=== PATIENT | female | born 1995 | race Caucasian/White ===

== ENCOUNTER → 2017-03-04 | Outpatient (CLI) | payer OTHER ==
[2017-03-04 12:29] LABS: MEAN CORPUSCULAR HEMOGLOBIN 27.1 pg (27.0-33.0); MEAN CORPUSCULAR HGB CONC 32.1 g/dl (32.0-36.5); MEAN CORPUSCULAR VOLUME 84.7 fl (80.0-96.0); PLATELET COUNT, AUTOMATED 208 10^3/uL (150-450); RED CELL DISTRIBUTION WIDTH 13.3 % (11.5-14.5); WHITE BLOOD COUNT 7.9 10^3/uL (4.0-10.0)
--- NOTE | 2017-03-05 04:11 | REP ---
Clinical: Anatomical evaluation. Comparison: None . Findings: Examination demonstrates a single live intrauterine in cephalic presentation. motion is identified by technologist. Placenta is noted posteriorly and grade one without evidence for placenta previa or abruption. Amniotic fluid volume is normal. Cervix measures 4.3 cm in length and appears closed. Nuchal cord cannot be excluded. Gestational age by LMP 29 weeks 2 days with MARK 05/18/2017 . Gestational age by current measurements 29 weeks 5 days with MARK 05/15/2017 . FHR equals 139 beats per minute. BPD 7.1 cm 28 weeks 3 days HC 27.0 cm 29 weeks 3 days AC 25.1 cm 29 weeks 2 days FL 5.9 cm 30 weeks 4 days HL 5.2 cm 30 weeks 4 day HC/AC ratio 1.08 Estimated weight 1434 grams (50th percentile). Anatomical assessment demonstrates normal structures including cranium, choroid plexus, cavum, cerebellum/posterior fossa, facial features, lungs, four-chamber heart, diaphragm, stomach, cord insertion/three-vessel cord, kidneys/bladder, spine, and extremities. Limited evaluation of the cardiac ventricular outflow tracts. Impression: Single live intrauterine in cephalic presentation demonstrating appropriate interval growth. No gross abnormalities are identified. Nuchal cord cannot be excluded. Cardiac ventricular outflow tracts incompletely evaluated. Signed by Hakan Barnhart MD 03/05/2017 01:02 A
== END ==
LOC: M RAD 10:04
PROVIDERS: ATTEND Obstetrics & Gynecology
DX: Z36.89 Encounter for other specified antenatal screening (principal); Z3A.29 29 weeks gestation of pregnancy

== ENCOUNTER → 2017-04-25 | Outpatient (REF) | payer OTHER | LOC: M LAB REF 17:03 | DX: Z34.83 Encounter for supervision of other normal pregnancy, third trimester (principal) ==

== ENCOUNTER 2017-05-17 03:40 | Inpatient (IN) | payer OTHER ==
[2017-05-17] MEDS ORDERED: OXYTOCIN 30 UNITS IN 0.9% NaCl 500ML IV BAG (J2590) As Ordered (04:55)
[2017-05-17] MEDS: LACTATED RINGER'S 1000 ML IV (04:56)
[2017-05-17] MEDS ORDERED: LR 1,000 ML IV (04:56)
[2017-05-17 05:11] LABS: HEMATOCRIT 35.9 % (36.0-47.0); HEMOGLOBIN 12.1 g/dl (12.0-16.0); MEAN CORPUSCULAR HEMOGLOBIN 28.1 pg (27.0-33.0); MEAN CORPUSCULAR HGB CONC 33.7 g/dl (32.0-36.5); MEAN CORPUSCULAR VOLUME 83.3 fl (80.0-96.0); PLATELET COUNT, AUTOMATED 173 10^3/uL (150-450); RED BLOOD COUNT 4.31 10^6/uL (4.00-5.40); RED CELL DISTRIBUTION WIDTH 17.3 % (11.5-14.5); WHITE BLOOD COUNT 8.7 10^3/uL (4.0-10.0)
[2017-05-17] MEDS: OXYTOCIN DRIP 30 UNITS in APPROPRIATE DILUENT 1 EA IV (06:08)
[2017-05-17] MEDS: LR 1,000 ML IV ×3 (06:08→22:20)
[2017-05-17] MEDS ORDERED: ONDANSETRON 4MG/2ML VIAL (J2405) IV (06:15)
[2017-05-17] MEDS ORDERED: PROMETHAZINE 25 MG TAB PO (06:15)
[2017-05-17] MEDS ORDERED: MEASLES,MUMPS,RUBELLA VACCINE INJ (MMR-II) (90707) SC (06:15)
[2017-05-17] MEDS ORDERED: ACETAMINOPHEN 500 MG TAB PO (06:15)
[2017-05-17] MEDS ORDERED: RHOGAM 300 MCG (1500 IU) INJ (J2790) IM (06:15)
[2017-05-17] MEDS ORDERED: DIBUCAINE 1% OINTMENT 30GM TOP (06:15)
[2017-05-17] MEDS ORDERED: DOCUSATE SODIUM 100 MG CAP PO (06:15)
[2017-05-17 08:20] LABS: HBSAG L&D NEGATIVE (NEGATIVE)
[2017-05-17] MEDS: PRENATAL VITAMINS CHEWABLE TABLET PO (09:25)
[2017-05-17] MEDS: IBUPROFEN 800 MG TAB PO (13:13)
[2017-05-17] MEDS: LIDOCAINE 1% MDV INJ 50 ML VIAL INFIL (19:31)
[2017-05-18] MEDS: IBUPROFEN 800 MG TAB PO (02:30)
[2017-05-18] MEDS: PRENATAL VITAMINS CHEWABLE TABLET PO (07:56)
== END 2017-05-18 17:40 | disposition home or self-care (01) | DRG 560 ==
LOC: M LDO 03:40 → M LDI 04:54 → M OBS 08:13
PROVIDERS: Obstetrics & Gynecology
PROC: 10E0XZZ Delivery of Products of Conception, External Approach (ICD-10-PCS; principal; 2017-05-17)
PROC: 0HQ9XZZ Repair Perineum Skin, External Approach (ICD-10-PCS; 2017-05-17)
DX: O99.02 Anemia complicating childbirth (principal); D64.9 Anemia, unspecified; Z37.0 Single live birth; Z3A.39 39 weeks gestation of pregnancy; Z79.899 Other long term (current) drug therapy; O70.0 First degree perineal laceration during delivery